=== PATIENT | female | born 1950 | race Caucasian/White ===

== ENCOUNTER → 2020-03-20 11:16 | Outpatient (CLI) | payer MEDICARE, OTHER, SELFPAY ==
[2020-03-20 12:37] LABS: COVID19 -Nasal RAPID Negative (Negative)
== END ==
PROVIDERS: Visit Provider Physician Assistant
DX: Z11.59 Encounter for screening for other viral diseases (principal)
CPT/HCPCS: 87635

== ENCOUNTER 2020-03-23 08:36 | Day surgery (SDC) | payer MEDICARE, OTHER, SELFPAY ==
[2020-03-23 11:36] VITALS: BP 139/76; PULSE 58; RESP 16; TEMP 35.5; O2SAT 98; BMI 23.6
[2020-03-23] MEDS: PROPARACAINE 0.5% OPHTH SOL 2 DROPS EYE-OP (11:51)
[2020-03-23] MEDS: CATARACT EYE COMPOUND (10 DROPS/SYRINGE) 3 DROPS EYE-OP (11:54)
--- NOTE | 2020-03-23 12:29 | PM.PREOP ---
Pre-operative Note Interval Note History & Physical reviewed/Exam performed by Physician: Yes Changes to H&P: No
--- NOTE | 2020-03-23 12:29 | PM.OP.1 ---
Operative Date/Time/Diagnoses Pre-op diagnosis: Nuclear cataract right eye Procedure & Clinicians Procedure: Cataract Surgery Same procedure as scheduled: Yes Surgeon: Bautista Soares Anesthesia Type: MAC +/- and Sedation Operative Notes Procedure in detail: Patient brought to the operating suite. Tetracaine drops placed in the right eye. Patient was prepped and draped in sterile manner. Wire lid speculum was placed in the eye. Betadine drops were placed on the eye. This was irrigated. Lidocaine jelly was placed on the eye. A paracentesis port was created with a side-port blade. 0.1 mL 1% preservative free lidocaine was injected into the anterior chamber. The anterior chamber was deepened with viscoelastic. 2.6 mm keratome was used to create a temporal clear corneal incision. Cystotome and Utrata forceps were used to create continuous tear capsulorrhexis. Balanced salt solution was used to hydro dissect the nucleus. The phacoemulsification handpiece was inserted and the nucleus was removed using the stop and chop technique. The irrigation aspiration handpiece was inserted and the remaining cortex was removed. Anterior chamber was deepened with viscoelastic. An Tam ZCB00 intraocular lens with a power of 15.5 was injected into the capsular bag. Irrigation aspiration handpiece was inserted and the remaining viscoelastic was removed. Incision was hydrated with balanced salt solution and found to be leak free with pressure with Weck-Mesha sponges. 0.1 mL Vigamox injected anterior chamber. 0.3 mL Kenalog 10 mg was injected subconjunctivally. Lid speculum was removed. The patient left the operating room in excellent condition. Complications: none Post-operative Condition: stable Disposition: same day surgery
[2020-03-23] MEDS: MOXIFLOXACIN INJ 5 MG/ML VIAL EYE-OP (12:50)
[2020-03-23] MEDS: PHENYLEPHRINE/LIDOCAINE VIAL (OR) 0.2 ML EYE-OP (12:50)
[2020-03-23] MEDS: CHONDROIDTIN/SOD HYALURONATE 1.05 ML SYRINGE INTRAOCULA (12:50)
[2020-03-23] MEDS: TRIAMCINOLONE 50 MG/5 ML VIAL INJ (12:50)
[2020-03-23] MEDS: BALANCED SALT IRRIG SOLN NO.2 500 ML, EPINEPHrine 1 MG IRR (12:51)
[2020-03-23] MEDS: TETRACAINE 0.5% OPHTH DROPS 4 ML 2 DROPS EYE-OP (12:51)
[2020-03-23] MEDS: LIDOCAINE JELLY 2% 5 ML 1 APPLIC TOP (12:51)
[2020-03-23 13:04] VITALS: BP 135/72; PULSE 50; RESP 16; TEMP 36.3; O2SAT 98
== END 2020-03-23 13:17 | disposition home or self-care (01) ==
PROVIDERS: PCP Nurse Practitioner Family; Referring Provider Ophthalmology; Visit Provider Ophthalmology
PROC: (CPT 66984; principal; 2020-03-23 12:45)
DX: H25.11 Age-related nuclear cataract, right eye (principal); E03.9 Hypothyroidism, unspecified
CPT/HCPCS: 66984; J0171; J2250; J3010; J3301

== ENCOUNTER → 2020-06-02 11:55 | Outpatient (CLI) | payer MEDICARE, OTHER, SELFPAY ==
--- NOTE | 2020-06-02 | DI.US.S_ITS ---
PROCEDURE: US PELVIC COMPLETE INDICATIONS: Pelvic pain TECHNIQUE: Real-time scanning was performed of the pelvic organs, with image documentation. Additional endovaginal scanning was necessary due to incomplete visualization of the adnexal and endometrial structures by transabdominal scanning. COMPARISON: None. FINDINGS: Uterus: Uterus is normal in size at 3.9 x 1.9 x 3.3 cm. The endometrium measures 1 mm in combined thickness. Ovaries: Neither ovary can be seen. No adnexal masses are seen on either side. Other: No pathologic free abdominal or pelvic fluid. IMPRESSION: Normal study for age, demonstrating an atrophic uterus. The endometrial stripe is not thickened. Neither ovary can seen. No adnexal masses are seen on either side. Dictated by: Ced Rivas M.D. on 06/02/2020 at 12:14 Approved by: Ced Rivas M.D. on 06/02/2020 at 12:14
== END ==
PROVIDERS: PCP Nurse Practitioner Family; Referring Provider Nurse Practitioner Family; Visit Provider Nurse Practitioner Family
DX: R10.2 Pelvic and perineal pain (principal)
CPT/HCPCS: 76856

== ENCOUNTER → 2020-06-25 08:39 | Outpatient (CLI) | payer MEDICARE, OTHER, SELFPAY ==
--- NOTE | 2020-06-25 | DI.US.S_ITS ---
PROCEDURE: US ABDOMEN COMPLETE INDICATIONS: BILIARY COLIC TECHNIQUE: Real-time scanning was performed of the abdominal and retroperitoneal organs, with image documentation. COMPARISON: [facility], US, US PELVIC COMPLETE, 06/02/2020, 12:21. FINDINGS: Liver: Liver is normal in size and homogeneous in echotexture. Gallbladder: No findings of gallstones or sludge are seen. The gallbladder wall is not thickened, measuring 3 mm or less. No specific pericholecystic fluid is seen. The sonographic Tee sign is negative. Biliary ducts: Intrahepatic bile ducts are non-dilated. Extrahepatic bile duct caliber measures 5 mm. Normal is 6-7 mm or less in diameter, or 10 mm or less post-cholecystectomy. Pancreas: Visualized portions of the pancreas are sonographically normal. Spleen: Spleen is normal in size and homogeneous in echotexture. Kidneys: Kidneys are normal in size and echotexture. Right kidney measures 9.3 cm long; left kidney measures 10.4 cm long. No hydronephrosis or nephrolithiasis. No solid masses. The renal cortex measures within normal limits for thickness. Aorta: Visualized aorta is normal in caliber at less than 3 cm. Iliacs: Proximal common iliac arteries are normal in caliber at less than 2.5 cm. IVC: Intrahepatic inferior vena cava is patent. Miscellaneous: No free abdominal fluid. IMPRESSION: The gallbladder demonstrates a normal sonographic appearance. No biliary dilatation is seen. Dictated by: Ced Rivas M.D. on 06/25/2020 at 12:45 Approved by: Ced Rivas M.D. on 06/25/2020 at 12:46
== END ==
PROVIDERS: PCP Nurse Practitioner Family; Referring Provider Nurse Practitioner Family; Visit Provider Nurse Practitioner Family
DX: K80.50 Calculus of bile duct without cholangitis or cholecystitis without obstruction (principal)
CPT/HCPCS: 76700

== ENCOUNTER 2022-11-24 00:38 | Emergency (ER) | payer MEDICARE, OTHER, SELFPAY ==
[2022-11-24 00:45] VITALS: BP 109/66; PULSE 75; RESP 18; TEMP 36.4; O2SAT 98; BMI 23.9
--- NOTE | 2022-11-24 01:13 | ED.GENADULT ---
HPI - General Adult General Chief complaint: Eye Problems Stated complaint: vision problems Time Seen by Provider: 11/24/22 00:51 Source: patient Mode of arrival: Ambulatory Limitations: no limitations History of Present Illness HPI narrative: Patient is a 72-year-old female. She states that for the past several days she has noticed what she thinks is a black spot in her vision in her right eye on the lower portion nasal aspect. She states that she has an appointment with Ophthalmology tomorrow at 1000 hours for further evaluation of this. She was asked by the machine tool designer if she had any flashes with it and she did not until this evening she did have a slight flash. She thinks that maybe it is somewhat bigger but can not definitively say. He would a slight headache earlier today but that is gone. She is no other associated symptoms. Related Data Home Medications Medication Instructions Recorded Confirmed levothyroxine 100 mcg tablet 100 mcg PO DAILY 03/23/20 03/23/20 Allergies Allergy/AdvReac Type Severity Reaction Status Date / Time No Known Drug Allergies Allergy Verified 03/23/20 11:32 Review of Systems Eyes Eyes: Reports system reviewed and no additional complaints, except as documented ENT Ears, Nose, Mouth, and Throat: Reports system reviewed and no additional complaints, except as documented Patient History Social History household members: spouse Smoking Status: Former smoker alcohol intake: current Smoking Status: Former smoker alcohol intake frequency: 0-2 drinks per day Substance Use Type: does not use Exam Initial Vital Signs Initial Vital Signs: Vital Signs Temperature 97.6 F 11/24/22 00:45 Pulse Rate 75 11/24/22 00:45 Respiratory Rate 18 11/24/22 00:45 Blood Pressure 109/66 11/24/22 00:45 Pulse Oximetry 98 11/24/22 00:45 Oxygen Delivery Method Room Air 11/24/22 00:45 HENAR Head: normal to inspection and normocephalic Face and sinus: normal facial exam Eyes Alignment and Position: alignment normal Periorbital: periorbital findings normal Eyelids: eyelids normal Pupils: PERRL EOM: EOM intact bilaterally Other: Patient has what appears to be normal visual pinedo of her left eye. Potentially a slight visual field loss on the right eye inferior nasal quadrant. Skin General: no rashes or lesions noted Neuro General: patient alert, patient awake, patient oriented x3 and moves all extremities Course Vital Signs Vital signs: Vital Signs - 8 hr 11/24/22 00:45 Temperature 97.6 F Pulse Rate 75 Respiratory Rate 18 Blood Pressure 109/66 Pulse Oximetry 98 Oxygen Delivery Method Room Air Medical Decision Making MDM Narrative Medical decision making narrative: She has had symptoms for the past couple days and has a follow-up with Ophthalmology already scheduled for later today at 1000 hours. She reports the visual field deficits on the right eye lower nasal quadrant visual field although with visual field testing I do not think that this the entire visual field that is deficient. The area that she describes does seem to be very small with visual field checking. Bedside ultrasound does not show a definitive retinal detachment. She does have what appears to be vitreous detachments on the ultrasound she states she has had floaters off and on for years now. She is no other neurologic symptoms. I feel that having her keep her appointment tomorrow with Ophthalmology would be the best course of action. I did tell her that I do see a pathway where potentially she would need to return to the emergency department for further evaluation to include an MRI. Will discharge patient home to have her follow-up with Ophthalmology. She expressed understanding and agreement with plan. Discharge Plan Departure Patient Disposition: Home Clinical Impression: Visual field defect of right eye Activity Restrictions/Additional Instructions: I do recommend that you keep your appointment that you have scheduled with ophthalmology at 1000 hours today. Return to the emergency department for new or worsening symptoms. Prescriptions: No Action levothyroxine 100 mcg Tablet 100 mcg PO DAILY Referrals: Randee Tee ARNP [Primary Care Provider] - Stand Alone Forms: Patient Portal/API
--- NOTE | 2022-11-24 01:24 | PC.NURSE ---
patient dose not have periferal vision in her left lower eye
[2022-11-24 01:25] VITALS: BP 130/60; PULSE 78; RESP 15; O2SAT 98
== END 2022-11-24 01:27 | disposition home or self-care (01) ==
PROVIDERS: Emergency Provider Emergency Medicine; PCP Nurse Practitioner Family
DX: H53.40 Unspecified visual field defects (principal)
CPT/HCPCS: 99281